=== PATIENT | male | born 1950 | race Caucasian/White ===

== ENCOUNTER 2024-06-10 07:55 | Outpatient (CLI) | payer MEDICARE, MEDICAID, SELFPAY ==
--- NOTE | ~2024-06-10 | XR_ITS ---
MODIFIED ESOPHAGRAM HISTORY: Dysphagia. TECHNIQUE: Modified barium esophagram was performed on 06/10/2024. I administered fluoroscopy and perf ormed the exam with speech pathologist. Patient was seated for lateral fluoroscopic imaging for helen stion of thin liquids, pudding, solids and quantified amounts, followed by thin liquids in uncontroll ed amounts. This was recorded on tape. A single fluoroscopic spot image was also recorded. The DAP fo r this procedure was 1.926 Gycm2. The amount of fluoroscopy time used during this procedure was 2.9 m inutes. FINDINGS: Oral stage: Adequate function. Pharyngeal stage: Reduced laryngeal elevation and reduced tongue base retraction. There is vallecular residue. Trace laryngeal penetration without aspiration with thin liquids. Cervical/esophageal stage: Adequate function. IMPRESSION: Pharyngeal dysphagia with trace laryngeal penetration without aspiration with thin liquid s. Please correlate with speech pathologist findings and specific feeding recommendations. Reviewed, dictated and finalized at location A. IMPRESSION: Pharyngeal dysphagia with trace laryngeal penetration without aspir ation with thin liquids. Please correlate with speech pathologist findings and specific feeding recommendations.
--- NOTE | 2024-06-10 15:59 | REHSTMBS ---
Assessment and note entered by CHICHI Correa Modified Barium Swallow Evaluation Feeding Type Recommended Oral Food Consistency Soft and Bite Size, Level Liquid Consistency Mildly Thick (2) Treatment Recommendations Laryngeal Elevation Exerc,Supraglottic Swallow, Tongue Base Exercise ST Clinical Summary MODIFIED BARIUM SWALLOW STUDY Patient was seen for a Modified Barium Swallow study at the request of his physician. Patient is a resident at [facility] where he has been undergoing Speech Therapy for swallowing. Patient has a history of CVA. Patient was viewed in the lateral position to the level of C5/C6. Patient was presented with small sips of thin liquid contrast medium and found to have trace penetration on a single sip of one teaspoon of thin liquid. Additional thin liquid was not presented as his facility therapist felt he would be at risk for aspiration on thin liquids. He tolerated mildly thick liquid per spoon, cup, and straw, pudding per spoon, and also crackers and fruit cocktail pieces both coated with the pudding mixture with no additional penetration. Results suggest the following impairments: Oral Stage: None Pharyngeal Stage: Mildly reduced base of tongue retraction contributing to vallecular residue after each swallow and reduced laryngeal elevation contributing to penetration during the swallow. Cricopharyngeal Stage: None Results suggest the patient may begin return to Regular Diet, as tolerated and as approved by staff at facility, but he should remain on [place]/ Mildly Thick Liquids due to risk of penetration/ aspiration. Since Speech Therapy has been helpful, he should remain on Mildly/[place] Thick for another 4 weeks and try a Modified Barium Swallow study again to determine if he may advance to Regular Liquids. CHICHI Godoy, notified of results and recommendations. Thank you for this referral.
== END 2024-06-10 07:56 | disposition home or self-care (01) ==
PROVIDERS: PCP Internal Medicine; Visit Provider Internal Medicine
DX: R13.13 Dysphagia, pharyngeal phase (principal); K21.9 Gastro-esophageal reflux disease without esophagitis; I10 Essential (primary) hypertension; I63.9 Cerebral infarction, unspecified; E11.9 Type 2 diabetes mellitus without complications; F32.9 Major depressive disorder, single episode, unspecified; F41.9 Anxiety disorder, unspecified; G62.9 Polyneuropathy, unspecified; G47.00 Insomnia, unspecified
CPT/HCPCS: 92611